=== PATIENT | female | born 2005 | race Two or more races ===

== ENCOUNTER 2025-01-19 10:06 | Emergency (ER) | payer MEDICAID, SELFPAY ==
[2025-01-19 10:06] VITALS: BMI 22.7
[2025-01-19 10:29] VITALS: BP 105/59; PULSE 68; RESP 16; TEMP 37.1; O2SAT 97
--- NOTE | 2025-01-19 10:31 | XR_ITS ---
EXAMINATION: Ankle, left 3 views . Technique: Ankle AP, oblique, lateral 3 views Date and time of exam: January 19, 2025 1030 hours INDICATIONS: Twisting injury to the ankle today FINDINGS: No ankle fracture or dislocation No foreign body IMPRESSION: No ankle fracture or dislocation.
--- NOTE | 2025-01-19 10:47 | EDNOTE_ITS ---
<Statement entered by Yasemin Vargas MD - 01/19/25 11:50> As co-signing physician, I was present and available for consult prn. I concur with the plan and care as documented by the midlevel provider. Lower Extremity Injury RME/HPI General Chief Complaint: Extremity Injury, Lower Stated Complaint: LEFT LEG INJURY S/P FALL TODAY Time Seen by Provider: 01/19/25 10:25 Source: patient Arrival date/time: 01/19/25 10:06 19-year-old female with no known medical history presents to the emergency room with a chief complaint of tenderness to her left ankle x 1 day. Patient states she was trimming a tree while standing on a box and slipped and fell. Mode of arrival: ambulatory Limitations: no limitations Related Data Home Medications ?Medication ?Instructions ?Recorded ?Confirmed vit no.95-ferrous 1 tab PO QDAY 07/26/2102/04 fumarate 28 mg-folic acid 800 mcg tablet () Allergies Allergy/AdvReac Type Severity Reaction Status Date / Time No Known Allergies Allergy Verified 01/19/25 10:08 Review of Systems Review of Systems Systems Reviewed: All systems reviewed, normal except as documented Constitutional Constitutional: Reports system reviewed and no additional complaints, except as documented, Denies fatigue, Denies fever(s), Denies headache(s) and Denies weakness Eyes Eyes: Reports system reviewed and no additional complaints, except as documented, Denies blurry vision and Denies change in vision ENT Ears, Nose, Mouth, and Throat: Reports system reviewed and no additional complaints, except as documented, Denies otalgia, Denies headache(s), Denies nasal congestion, Denies throat swelling and Denies vertigo Cardiovascular Cardiovascular: Reports system reviewed and no additional complaints, except as documented, Denies chest pain, Denies dyspnea and Denies dyspnea on exertion Respiratory Respiratory: Reports system reviewed and no additional complaints, except as documented, Denies chest congestion, Denies cough, Denies dyspnea, Denies dyspnea on exertion and Denies wheezing Gastrointestinal Gastrointestinal: Reports system reviewed and no additional complaints, except as documented, Denies abdominal pain, Denies cramping, Denies nausea and Denies vomiting Genitourinary Genitourinary: Reports system reviewed and no additional complaints, except as documented Musculoskeletal Musculoskeletal: Reports system reviewed and no additional complaints, except as documented, Reports abnormal gait, Reports arthralgias and Denies back pain Integumentary/Breasts Skin/Breast: Reports system reviewed and no additional complaints, except as documented and Denies wounds Neurologic Neurologic: Reports system reviewed and no additional complaints, except as documented, Reports abnormal gait, Denies confusion, Denies headache(s), Denies lack of coordination, Denies vertigo and Denies weakness Psychiatric Psychiatric: Reports system reviewed and no additional complaints, except as documented, Denies anxiety, Denies confusion, Denies depression, Denies paranoia, Denies suicidal ideation and Denies tactile hallucinations Endocrine Endocrine: Reports system reviewed and no additional complaints, except as documented and Denies fatigue Hematologic/Lymphatic Hematologic/Lymphatic: Reports system reviewed and no additional complaints, except as documented and Denies lymphadenopathy Allergic/Immunologic Allergic/Immunologic: Reports system reviewed and no additional complaints, except as documented, Denies throat swelling, Denies urticaria and Denies wheezing ED Exam General Limitations: Present no limitations General appearance: Present alert and in no apparent distress Head Head exam: Present atraumatic Eye Eye exam: Present normal appearance, PERRL and EOMI ENT ENT exam: Present normal exam, normal oropharynx and mucous membranes moist Neck Neck exam: Present normal inspection, full ROM and trachea midline Chest Chest inspection: Present normal inspection and symmetric chest wall rise Respiratory Respiratory exam: Present normal lung sounds bilaterally Cardiovascular Cardiovascular exam: Present regular rate, normal rhythm and normal heart sounds Abdominal Exam Abdominal exam: Present soft and normal bowel sounds Extremities Exam Extremities exam: Present normal inspection and full ROM Expanded Lower Extremity Exam Hip/Pelvis exam: Present normal inspection Upper leg exam: Present normal inspection Knee exam: Present normal inspection Lower leg exam: Present normal inspection Ankle exam: Present normal inspection, tenderness and swelling Foot/toe exam: Present normal inspection Gait: observed and limited by pain Back Exam Back exam: Present normal inspection and full ROM Neurological Exam Neurological exam: Present alert, oriented X3 and CN II-XII intact Psychiatric Psychiatric exam: Present normal affect and normal mood Skin Skin exam: Present warm, dry, intact and normal color Course Quality Measures none Orders Category Date Time Status nae wrap [Splint / Immobilizer] STAT Care 01/19/25 10:49 Active XR ankle comp LT min 3V Stat Exams 01/19/25 10:31 Completed Vital Signs Vital signs: Vital Signs Temperature 98.8 F 09/15/25 10:29 Pulse Rate 68 01/19/25 10:29 Respiratory Rate 16 01/19/25 10:29 Blood Pressure 105/59 L 01/19/25 10:29 Pulse Oximetry (%) 97 01/19/25 10:29 Oxygen Delivery Method Room Air 01/19/25 10:29 Extremity Injury, Lower MDM Narrative MDM Narrative:: 19-year-old female with no known medical history presents to the emergency room with a chief complaint of tenderness to her left ankle x 1 day. Patient states she was trimming a tree while standing on a box and slipped and fell. Patient is hemodynamically stable and in no apparent distress Physical examination shows tenderness and swelling to the left ankle with palpation. The patient is able to ambulate but has pain and a limp Patient also has tenderness to her left femur. The patient is able to ambulate and there is no significant pain or discomfort with palpation X-ray of the left ankle was negative for any acute fracture or dislocation Patient was discharged and educated to follow-up with primary care provider in the next 24 to 48 hours and return to the emergency room for any evidence of worsening signs or symptoms Patient data External records reviewed:: [facility] previous records Clinical information provided by:: patient Social determinants that could affect healthcare access:: none Patient has the following chronic illnesses:: No chronic illness How is presenting disease/condition affected by chronic disease/condition?: no chronic disease Evaluation data The following diagnostics were reviewed and interpreted by me:: lab results and radiology exam(s) Lab and/or radiology exams considered but not ordered:: Labs and radiology exams considered and ordered Interpretation Summary: N/A Medications / Prescriptions Medications or Prescriptions considered but not ordered:: No medication given Medication administrations:: No medication given Consultations Consultation(s) initiated? (list below): No Diagnosis Extremity Injury, Lower Differential Diagnosis: ankle sprain and strain and ankle fracture Most likely diagnosis given after review of the tests above:: Ankle sprain and strain Admission Indicated Admission indicated?: not indicated Admission Request Was there a request for admission?: No Disposition Plan Disposition Plan: Discharge Discharge Attestation Discharge Attestation: The patient and all family members were given an opportunity to ask questions and understood the discharge instructions. Discharge instructions specifically effects, indications for sooner follow up or return to the emergency department, and the expected course of current diagnosis. Patient condition: Stable Discharge Plan Plan Patient Disposition: HOME (Self Care) Discharge Disposition comment: Stable Prescriptions/Referrals Prescriptions/Med Rec: No Action PNV no.95-ferrous fumarate-FA [] 28 mg iron- 800 mcg tablet 1 tab PO QDAY Problem List Clinical Impression: Ankle sprain and strain Patient/Caregiver Discharge Instructions Additional Instructions: Please follow-up with your primary care provider in the next 24 to 48 hours X-rays of your ankle were negative for any acute fracture or dislocation For any evidence of worsening signs or symptoms return to emergency room immediately Print Language: Indonesian Stand Alone Forms: Kim Award Info., Work/School Release, Patient Portal Info Letter PA/MANAGER CONTRACTING Supervising Physician PA/MANAGER CONTRACTING Supervising Physician: Dr. VARGAS
== END 2025-01-19 12:54 | disposition home or self-care (01) ==
PROVIDERS: Emergency Provider Emergency Medicine; PCP Family Medicine
DX: S93.402A Sprain of unspecified ligament of left ankle, initial encounter (principal); S96.912A Strain of unspecified muscle and tendon at ankle and foot level, left foot, initial encounter; W17.89XA Other fall from one level to another, initial encounter; Y93.89 Activity, other specified; Y93.H2 Activity, gardening and landscaping
CPT/HCPCS: 73610; 99284